=== PATIENT | male | born 1975 | race Two or more races ===

== ENCOUNTER 2022-05-28 14:21 | Outpatient (CLI) | payer OTHER | END 2022-05-28 14:33 | disposition home or self-care (01) | LOC: RAD 14:21 | PROVIDERS: ATTEND Internal Medicine Cardiovascular Disease | DX: I20.9 Angina pectoris, unspecified (principal); I11.9 Hypertensive heart disease without heart failure; E66.9 Obesity, unspecified; E78.00 Pure hypercholesterolemia, unspecified ==